=== PATIENT | male | born 1960 | race Caucasian/White ===

== ENCOUNTER 2021-09-03 10:37 | Inpatient (IN) ==
[2021-09-03] MEDS ORDERED: Naloxone 0.4 MG/ML INJ IVP PRN (14:12)
[2021-09-03] MEDS: Ipratropium/Albuterol Neb 3 ML IH SCH ×2 (15:42→20:07)
[2021-09-03] MEDS: Cefepime HCl 2,000 MG in 0.9 % Sodium Chloride 10 ML IVP SCH ×2 (15:43→23:22)
[2021-09-03 16:54] LABS: Adenovirus Not Detected (Not Detect); Bordetella Pertussis Not Detected (Not Detect); Chlamydophila pneumoniae Not Detected (Not Detect); Coronavirus 229E Not Detected (Not Detect); Coronavirus HKU1 Not Detected (Not Detect); Coronavirus NL63 Not Detected (Not Detect); Coronavirus OC43 Not Detected (Not Detect); Human Metapneumovirus Not Detected (Not Detect); Human Rhinovirus/Enterovirus Not Detected (Not Detect); Influenza A Subtype 2009 H1 Not Detected (Not Detect); Influenza B Not Detected (Not Detect); Mycoplasma pneumoniae Not Detected (Not Detect); Parainfluenza Virus 1 Not Detected (Not Detect); Parainfluenza Virus 2 Not Detected (Not Detect); Parainfluenza Virus 3 Not Detected (Not Detect); Parainfluenza Virus 4 Not Detected (Not Detect); Respiratory Syncytial Virus Not Detected (Not Detect); SARS-CoV-2 Not Detected (Not Detect)
[2021-09-03] MEDS ORDERED: *HR* LORazepam 2 MG/ML VIAL IVP PRN (23:43)
[2021-09-03] MEDS: Folic Acid 1 MG TABLET PO SCH (23:57)
[2021-09-03] MEDS: Thiamine (B-1) 100 MG TABLET PO SCH (23:57)
[2021-09-03] MEDS: Vitamin B Complex/Vit C/Vit E 1 EACH TABLET PO SCH (23:57)
[2021-09-04 00:13] LABS: ABG Base Excess 1 mEq/L (-2 to 3); ABG HCO3 23 mEq/L (21-27); ABG Oxygen Saturation 99 % (95-98); ABG PCO2 29 mmHg (35-45); ABG PH 7.51 pH Units (7.32-7.45); ABG PO2 112 mmHg (85-104); ABG TCO2 24 mEq/L (20-26)
[2021-09-04] MEDS: *HR* LORazepam 2 MG/ML VIAL IVP PRN ×5 (01:04→12:38)
[2021-09-04] MEDS: Dexmedetomidine HCl 400 MCG/100 ML MLS IVC SCH ×4 (03:03→19:31)
[2021-09-04] MEDS: Ipratropium/Albuterol Neb 3 ML IH SCH ×4 (03:22→20:22)
[2021-09-04] MEDS ORDERED: Furosemide 20 MG/2 ML VIAL IVP ONE (03:53)
[2021-09-04] MEDS ORDERED: Ipratropium/Albuterol Neb 3 ML IH ONE (04:00)
[2021-09-04 05:44] LABS: Basophils % 0.1 %; Eosinophils # 0.2 K/mcL (0.0-0.6); Eosinophils % 1.9 %; Hematocrit 44.6 % (37.5-50.1); Immature Granulocytes % 0.9 % (0-4); Lymphocytes # 1.4 K/mcL (0.6-4.6); Lymphocytes % 11.4 %; Mean Corpuscular HGB Conc 33.6 g/dL (31.6-35.5); Mean Corpuscular Hemoglobin 33.7 pg (28.0-33.3); Mean Corpuscular Volume 100.2 fL (83.0-100.0); Monocytes # 0.4 K/mcL (0.0-1.3); Monocytes % 3.1 %; Neutrophils # 10.4 K/mcL (1.6-8.9); Platelet Count 175 K/mcL (140-400); Red Blood Count 4.45 M/mcL (4.19-5.50); Red Cell Distribution Width 12.6 % (11.5-14.5); Segmented Neutrophils % 82.6 %; White Blood Count 12.6 K/mcL (4.3-11.1)
[2021-09-04 06:11] LABS: BUN/Creatinine Ratio 30 (6-26); Blood Urea Nitrogen 17 mg/dL (6-20); Calcium 8.8 mg/dL (8.6-10.3); Carbon Dioxide 26 mEq/L (23-29); Chloride 103 mEq/L (98-107); Glucose 125 mg/dL (70-105); Osmolality,Calculated 285 (280-300); Potassium 3.6 mEq/L (3.5-5.1); Sodium 136 mEq/L (136-145); eGFR For African Americans > 60 (> 60); eGFR For Non-African Americans > 60 (> 60)
[2021-09-04] MEDS: Cefepime HCl 2,000 MG in 0.9 % Sodium Chloride 10 ML IVP SCH ×3 (08:31→23:30)
[2021-09-04] MEDS ORDERED: predniSONE 20 MG TABLET PO SCH (09:00)
[2021-09-04] MEDS: Folic Acid 1 MG TABLET PO SCH (09:07)
[2021-09-04] MEDS: Vitamin B Complex/Vit C/Vit E 1 EACH TABLET PO SCH (09:07)
[2021-09-04] MEDS: Thiamine (B-1) 100 MG TABLET PO SCH (09:07)
[2021-09-04] MEDS ORDERED: Thiamine (B-1) 100 MG, Folic Acid 1 MG, MVI, adult with vitamin K 10 ML in 0.9 % Sodi... IVPB SCH (11:12)
[2021-09-04] MEDS ORDERED: Thiamine (B-1) 100 MG in 0.9 % Sodium Chloride 50 ML IVPB SCH (11:30)
[2021-09-04] MEDS: Budesonide/Formoterol 160/4.5 1 PUFF INH IH SCH ×2 (11:48→20:23)
[2021-09-04 12:30] LABS: ABG Base Excess 3 mEq/L (-2 to 3); ABG HCO3 33 mEq/L (21-27); ABG Oxygen Saturation 95 % (95-98); ABG PCO2 74 mmHg (35-45); ABG PH 7.25 pH Units (7.32-7.45); ABG PO2 94 mmHg (85-104); ABG TCO2 35 mEq/L (20-26)
[2021-09-04] MEDS: Folic Acid 1 MG in 0.9 % Sodium Chloride 50 ML IVPB SCH (12:37)
[2021-09-04] MEDS: MethylPREDNISolone 40 MG/ML VIAL IVP SCH (13:59)
[2021-09-04] MEDS: *HR* Heparin 5,000 UNIT/ML VIAL SQ SCH ×2 (14:00→20:43)
[2021-09-04 16:12] LABS: ABG Base Excess 4 mEq/L (-2 to 3); ABG HCO3 32 mEq/L (21-27); ABG Oxygen Saturation 100 % (95-98); ABG PCO2 58 mmHg (35-45); ABG PH 7.34 pH Units (7.32-7.45); ABG PO2 210 mmHg (85-104); ABG TCO2 33 mEq/L (20-26); Blood Gas Pressure Support 6 cm H2O
[2021-09-04 20:32] LABS: ABG Base Excess 2 mEq/L (-2 to 3); ABG HCO3 26 mEq/L (21-27); ABG Oxygen Saturation 97 % (95-98); ABG PCO2 36 mmHg (35-45); ABG PH 7.46 pH Units (7.32-7.45); ABG PO2 83 mmHg (85-104); ABG TCO2 27 mEq/L (20-26)
[2021-09-04] MEDS ORDERED: QUEtiapine Fumarate 25 MG TABLET PO SCH (21:00)
[2021-09-04 23:03] LABS: Amphetamine Screen,Urine Negative ng/mL (Cutoff=1000); Barbiturate Screen,Urine Negative ng/mL (Cutoff=200); Benzodiazepines Screen,Urine Negative ng/mL (Cutoff=200); Cannabinoid Screen,Urine Positive ng/mL (Cutoff = 50); Cocaine Screen,Urine Negative ng/mL (Cutoff= 300); Opiate Screen,Urine Negative ng/mL (Cutoff=300); Phencyclidine Screen,Urine Negative ng/mL (Cutoff=25)
[2021-09-05] MEDS: Ipratropium/Albuterol Neb 3 ML IH SCH ×4 (03:47→20:18)
[2021-09-05] MEDS: *HR* Heparin 5,000 UNIT/ML VIAL SQ SCH ×3 (05:26→20:22)
[2021-09-05 06:27] LABS: Basophils % 0.1 %; Eosinophils % 0.1 %; Hematocrit 44.1 % (37.5-50.1); Immature Granulocytes % 0.6 % (0-4); Lymphocytes # 1.4 K/mcL (0.6-4.6); Lymphocytes % 8.9 %; Mean Corpuscular Hemoglobin 33.9 pg (28.0-33.3); Mean Corpuscular Volume 99.5 fL (83.0-100.0); Mean Platelet Volume 11.6 fL (9.4-12.4); Monocytes # 0.5 K/mcL (0.0-1.3); Monocytes % 3.1 %; Neutrophils # 13.7 K/mcL (1.6-8.9); Platelet Count 221 K/mcL (140-400); Red Blood Count 4.43 M/mcL (4.19-5.50); Red Cell Distribution Width 12.4 % (11.5-14.5); Segmented Neutrophils % 87.2 %; White Blood Count 15.7 K/mcL (4.3-11.1)
[2021-09-05 07:29] LABS: Alanine Aminotransferase 35 Units/L (7-52); Albumin 2.8 g/dL (3.5-5.7); Albumin/Globulin Ratio 0.6 (1.1-2.2); Alkaline Phosphatase 72 Units/L (34-104); Aspartate Amino Transferase 33 Units/L (13-39); BUN/Creatinine Ratio 50 (6-26); Bilirubin,Total 0.8 mg/dL (0.3-1.0); Blood Urea Nitrogen 25 mg/dL (6-20); Calcium 8.9 mg/dL (8.6-10.3); Carbon Dioxide 28 mEq/L (23-29); Chloride 105 mEq/L (98-107); Globulin 4.4 g/dL (2.4-3.5); Glucose 128 mg/dL (70-105); Magnesium 2.4 mg/dL (1.6-2.6); Osmolality,Calculated 294 (280-300); Sodium 139 mEq/L (136-145); Total Protein 7.2 g/dL (6.4-8.9); eGFR For African Americans > 60 (> 60); eGFR For Non-African Americans > 60 (> 60)
[2021-09-05] MEDS: Budesonide/Formoterol 160/4.5 1 PUFF INH IH SCH ×2 (07:32→20:19)
[2021-09-05] MEDS: Cefepime HCl 2,000 MG in 0.9 % Sodium Chloride 10 ML IVP SCH ×3 (07:45→23:20)
[2021-09-05] MEDS: MethylPREDNISolone 40 MG/ML VIAL IVP SCH (07:45)
[2021-09-05] MEDS: Folic Acid 1 MG in 0.9 % Sodium Chloride 50 ML IVPB SCH (07:46)
[2021-09-05] MEDS: Folic Acid 1 MG TABLET PO SCH (07:46)
[2021-09-05] MEDS: Multivit/Ca/Min/Fe/FA 1 TAB TABLET PO SCH (07:46)
[2021-09-05] MEDS: predniSONE 20 MG TABLET PO SCH ×2 (07:57→07:59)
[2021-09-05] MEDS: Thiamine (B-1) 100 MG TABLET PO SCH (07:57)
[2021-09-05] MEDS: QUEtiapine Fumarate 25 MG TABLET PO SCH ×2 (07:58→20:22)
[2021-09-06 02:05] LABS: Basophils % 0.2 %; Eosinophils # 0.1 K/mcL (0.0-0.6); Eosinophils % 0.3 %; Hematocrit 42.6 % (37.5-50.1); Hemoglobin 14.5 g/dL (12.9-16.9); Immature Granulocytes % 0.8 % (0-4); Lymphocytes # 2.6 K/mcL (0.6-4.6); Lymphocytes % 14.8 %; Mean Corpuscular Hemoglobin 34.2 pg (28.0-33.3); Mean Corpuscular Volume 100.5 fL (83.0-100.0); Mean Platelet Volume 11.9 fL (9.4-12.4); Monocytes # 0.8 K/mcL (0.0-1.3); Monocytes % 4.4 %; Neutrophils # 13.8 K/mcL (1.6-8.9); Platelet Count 207 K/mcL (140-400); Red Blood Count 4.24 M/mcL (4.19-5.50); Red Cell Distribution Width 12.5 % (11.5-14.5); Segmented Neutrophils % 79.5 %; White Blood Count 17.4 K/mcL (4.3-11.1)
[2021-09-06 02:21] LABS: BUN/Creatinine Ratio 44 (6-26); Blood Urea Nitrogen 26 mg/dL (6-20); Calcium 8.6 mg/dL (8.6-10.3); Carbon Dioxide 27 mEq/L (23-29); Chloride 107 mEq/L (98-107); Glucose 115 mg/dL (70-105); Osmolality,Calculated 294 (280-300); Potassium 3.9 mEq/L (3.5-5.1); Sodium 139 mEq/L (136-145); eGFR For African Americans > 60 (> 60); eGFR For Non-African Americans > 60 (> 60)
[2021-09-06] MEDS: Ipratropium/Albuterol Neb 3 ML IH SCH ×4 (03:43→21:16)
[2021-09-06] MEDS: *HR* Heparin 5,000 UNIT/ML VIAL SQ SCH ×3 (05:08→21:46)
[2021-09-06] MEDS: QUEtiapine Fumarate 25 MG TABLET PO SCH (08:33)
[2021-09-06] MEDS: Cefepime HCl 2,000 MG in 0.9 % Sodium Chloride 10 ML IVP SCH ×2 (08:33→16:59)
[2021-09-06] MEDS: predniSONE 20 MG TABLET PO SCH (08:33)
[2021-09-06] MEDS: Thiamine (B-1) 100 MG TABLET PO SCH (08:33)
[2021-09-06] MEDS: Folic Acid 1 MG TABLET PO SCH (08:33)
[2021-09-06] MEDS: Furosemide 20 MG TABLET PO SCH (08:33)
[2021-09-06] MEDS: Multivit/Ca/Min/Fe/FA 1 TAB TABLET PO SCH (08:34)
[2021-09-06] MEDS: Budesonide/Formoterol 160/4.5 1 PUFF INH IH SCH ×2 (10:28→21:16)
[2021-09-07] MEDS: Cefepime HCl 2,000 MG in 0.9 % Sodium Chloride 10 ML IVP SCH ×4 (00:30→23:19)
[2021-09-07] MEDS: Ipratropium/Albuterol Neb 3 ML IH SCH ×4 (04:21→21:39)
[2021-09-07] MEDS: *HR* Heparin 5,000 UNIT/ML VIAL SQ SCH ×3 (06:02→19:38)
[2021-09-07] MEDS: Thiamine (B-1) 100 MG TABLET PO SCH (07:58)
[2021-09-07] MEDS: Multivit/Ca/Min/Fe/FA 1 TAB TABLET PO SCH (07:58)
[2021-09-07] MEDS: Folic Acid 1 MG TABLET PO SCH (07:58)
[2021-09-07] MEDS: Furosemide 20 MG TABLET PO SCH (07:58)
[2021-09-07] MEDS: predniSONE 20 MG TABLET PO SCH (07:58)
[2021-09-07] MEDS: Budesonide/Formoterol 160/4.5 1 PUFF INH IH SCH ×2 (10:45→21:39)
[2021-09-08] MEDS: Ipratropium/Albuterol Neb 3 ML IH SCH ×3 (03:55→14:37)
[2021-09-08] MEDS: *HR* Heparin 5,000 UNIT/ML VIAL SQ SCH ×2 (05:08→14:25)
[2021-09-08] MEDS: Cefepime HCl 2,000 MG in 0.9 % Sodium Chloride 10 ML IVP SCH ×2 (09:18→14:27)
[2021-09-08] MEDS: Multivit/Ca/Min/Fe/FA 1 TAB TABLET PO SCH (09:18)
[2021-09-08] MEDS: Furosemide 20 MG TABLET PO SCH (09:18)
[2021-09-08] MEDS: Folic Acid 1 MG TABLET PO SCH (09:18)
[2021-09-08] MEDS: Thiamine (B-1) 100 MG TABLET PO SCH (09:18)
[2021-09-08] MEDS: predniSONE 20 MG TABLET PO SCH (09:18)
[2021-09-08 09:27] VITALS: O2SAT 95
[2021-09-08] MEDS: Budesonide/Formoterol 160/4.5 1 PUFF INH IH SCH (09:30)
[2021-09-08 09:33] VITALS: BP 133/88; PULSE 81; TEMP 97.8
== END 2021-09-08 15:35 | disposition home health service (06) | DRG 871 ==
LOC: 2NENU 13:31 → SUATTDRO 13:31
PROVIDERS: ADMIT Internal Medicine; ATTEND Family Medicine